=== PATIENT | male | born 1990 | race African-American/Black ===

== ENCOUNTER 2024-05-01 12:23 | Emergency (ER) | payer OTHER ==
[2024-05-01 12:38] VITALS: RESP 18
--- NOTE | 2024-05-01 13:06 | ED ---
Extremity Problem HPI - General Chief complaint: Extremity Problem,Nontraumatic Stated complaint: Bilat foot pain Time Seen by Provider: 05/01/24 12:40 Source: patient, EMS, RN notes reviewed Mode of arrival: EMS Limitations: no limitations - History of Present Illness Initial comments: This is a 34-year-old male with history of EtOH abuse presenting with bilateral great toe pain x 1 day. Patient states he is homeless and was out in the cold rain all night last night. Endorses a burning sensation in his bilateral great toes since that time. Denies recent trauma to feet. Patient denies change in color, motor function or sensation. MD Complaint: extremity pain Onset/Timin -: days(s) Location: bilateral lower extremity, toe History of Same: No Severity scale (1-10): 8 Quality: burning Consistency: constant - Related Data Allergies Allergy/AdvReac Type Severity Reaction Status Date / Time No Known Allergies Allergy Verified 05/01/24 12:38 Review of Systems ROS Statement: Those systems with pertinent positive or pertinent negative responses have been documented in the HPI. ROS Other: All systems not noted in ROS Statement are negative. Past Medical History Past Medical History: Hypertension History of Any Multi-Drug Resistant Organisms: None Reported Past Surgical History: No Surgical Hx Reported Smoking Status: Current every day smoker Past Alcohol Use History: Abuse, Heavy Past Drug Use History: Marijuana General Exam Limitations: no limitations General appearance: alert, in no apparent distress Head exam: Present: atraumatic, normocephalic, normal inspection Eye exam: Present: normal appearance, PERRL, EOMI. Absent: scleral icterus, conjunctival injection, periorbital swelling ENT exam: Present: normal exam, mucous membranes moist Neck exam: Present: normal inspection. Absent: tenderness, meningismus, lymphadenopathy Respiratory exam: Present: normal lung sounds bilaterally. Absent: respiratory distress, wheezes, rales, rhonchi, stridor Cardiovascular Exam: Present: regular rate, normal rhythm, normal heart sounds. Absent: systolic murmur, diastolic murmur, rubs, gallop, clicks GI/Abdominal exam: Present: soft, normal bowel sounds. Absent: distended, tenderness, guarding, rebound, rigid Extremities exam: Present: normal inspection, full ROM, tenderness (Positive exquisite tenderness of bilateral great toes with warmth noted. Negative color change, blistering. Capillary refill less than 2 seconds bilaterally), normal capillary refill, other (Dorsalis pedis pulse +2 bilaterally. Negative ulcerations, maceration or obvious breakdown of skin on feet). Absent: pedal edema, joint swelling, calf tenderness Back exam: Present: normal inspection Neurological exam: Present: alert, oriented X3, CN II-XII intact Psychiatric exam: Present: normal affect, normal mood Skin exam: Present: warm, dry, intact, normal color. Absent: rash Course Vital Signs 05/01/24 12:31 Temperature 98.1 F Pulse Rate 86 Respiratory 18 Rate Blood Pressure 129/84 O2 Sat by Pulse 98 Oximetry Medical Decision Making - Medical Decision Making Was pt. sent in by a medical professional or institution (, PA, C[employer] LATHE MACHINIST, urgent care, hospital, or alf...) When possible be specific @ -No Did you speak to anyone other than the patient for history (EMS, parent, family, police, friend...)? What history was obtained from this source @ -No Did you review nursing and triage notes (agree or disagree)? Why? @ -I reviewed and agree with nursing and triage notes Were old charts reviewed (outside hosp., previous admission, EMS record, old EKG, old radiological studies, urgent care reports/EKG's, alf records)? Report findings @ -No old charts were reviewed Differential Diagnosis (chest pain, altered mental status, abdominal pain women, abdominal pain men, vaginal bleeding, weakness, fever, dyspnea, syncope, headache, dizziness, GI bleed, back pain, seizure, CVA, palpatations, mental health, musculoskeletal)? @ -Toe fracture, foot fracture, toe dislocation, PVD, frostbite, this is not an exhaustive list EKG interpreted by me (3pts min.). @ -Not done X-rays interpreted by me (1pt min.). @ -Bilateral foot x-ray reveals no obvious fracture or dislocation. No soft tissue edema or subcutaneous emphysema. CT interpreted by me (1pt min.). @ -None done U/S interpreted by me (1pt. min.). @ -None done What testing was considered but not performed or refused? (CT, X-rays, U/S, labs)? Why? @ -None What meds were considered but not given or refused? Why? @ -None Did you discuss the management of the patient with other professionals (professionals i.e. , PA, C[employer] LATHE MACHINIST, lab, RT, psych nurse, secondary social studies teacher, lithoplate maker, teacher, staff antisubmarine officer, case management assistant)? Give summary @ -No Was smoking cessation discussed for >3mins.? @ -No Was critical care preformed (if so, how long)? @ -No Were there social determinants of health that impacted care today? How? (Homelessness, low income, unemployed, alcoholism, drug addiction, transportation, low edu. Level, literacy, decrease access to med. care, longterm, rehab)? @ -Homelessness, alcoholism Was there de-escalation of care discussed even if they declined (Discuss DNR or withdrawal of care, Hospice)? DNR status @ -No What co-morbidities impacted this encounter? (DM, HTN, Smoking, COPD, CAD, Cancer, CVA, ARF, Chemo, Hep., AIDS, mental health diagnosis, sleep apnea, morbid obesity)? @ -None Was patient admitted / discharged? Hospital course, mention meds given and route, prescriptions, significant lab abnormalities, going to OR and other pertinent info. @ -Discharge. Bilateral foot x-ray revealed no concerning findings. Patient given Toradol IM for pain. Patient's bare feet wrapped multiple times with warm blankets. Additional IM Toradol given after patient rates ongoing pain at 6 out of 10. Patient noted significant relief of pain prior to discharge. Undiagnosed new problem with uncertain prognosis? @ -No Drug Therapy requiring intensive monitoring for toxicity (Heparin, Nitro, Insulin, Cardizem)? @ -No Were any procedures done? @ -No Diagnosis/symptom? @ -Superficial frostbite Acute, or Chronic, or Acute on Chronic? @ -Acute Uncomplicated (without systemic symptoms) or Complicated (systemic symptoms)? @ -Uncomplicated Side effects of treatment? @ -No Exacerbation, Progression, or Severe Exacerbation? @ -No Poses a threat to life or bodily function? How? (Chest pain, [place], [place], pneumonia, PE, COPD, DKA, ARF, appy, cholecystitis, CVA, Diverticulitis, Homicidal, Suicidal, threat to staff... and all critical care pts) @ -No Disposition Clinical Impression: Superficial frostbite of toe Disposition: HOME SELF-CARE Condition: Good Instructions (If sedation given, give patient instructions): Frostbite (ED) Is patient prescribed a controlled substance at d/c from ED?: No Referrals: None,Stated [Primary Care Provider] - 1-2 days Time of Disposition: 14:37
[2024-05-01] MEDS: KETOROLAC 15 MG/ML 1 ML VIAL IVP STA (13:08)
[2024-05-01] MEDS: KETOROLAC 15 MG/ML 1 ML VIAL IM STA ×2 (13:17→14:14)
--- NOTE | 2024-05-01 13:26 | XR ---
Bilateral feet. HISTORY: Bilateral great toe pain. COMPARISON: None. TECHNIQUE: 6 views of the right and left foot were obtained. FINDINGS: There is mild hypertrophic spurring of the talonavicular joints bilaterally but the joint spaces are well preserved. There is no fracture or focal intraosseous abnormality. The soft tissues unremarkabl e. IMPRESSION: 1. No acute trauma. 2. Questionable mild degeneration of the talonavicular joints. [facility], Workstation: [facility], 05/01/2024 1:24 PM
[2024-05-01 14:53] VITALS: BP 122/86; PULSE 93; TEMP 98.2
== END 2024-05-01 15:09 | disposition home or self-care (01) ==
LOC: EC 12:23
DX: T33.831A Superficial frostbite of right toe(s), initial encounter (principal); T33.832A Superficial frostbite of left toe(s), initial encounter; F17.200 Nicotine dependence, unspecified, uncomplicated
CPT/HCPCS: 73630; 99284; 96372; J1885